=== PATIENT | female | born 1980 | race Caucasian/White ===

== ENCOUNTER 2018-11-23 18:05 | Emergency (ER) | payer MEDICAID ==
[~2018-11-23] VITALS: Ht 172.7 cm; Wt 57.0 kg
[~2018-11-23 18:05] MED LIST: THC INH
[2018-11-23 18:07] VITALS: BP 158/97
== END 2018-11-23 19:46 | disposition home or self-care (01) ==
LOC: ER 18:06
DX: S80.11XA Contusion of right lower leg, initial encounter (principal); M79.671 Pain in right foot; F12.90 Cannabis use, unspecified, uncomplicated; F17.200 Nicotine dependence, unspecified, uncomplicated; Z98.890 Other specified postprocedural states; Z88.1 Allergy status to other antibiotic agents; W22.8XXA Striking against or struck by other objects, initial encounter; Y93.89 Activity, other specified; Y92.89 Other specified places as the place of occurrence of the external cause; Y99.8 Other external cause status
CPT/HCPCS: 73630; 99284